=== PATIENT | female | born 1985 | race Caucasian/White ===

== ENCOUNTER 2019-07-26 17:35 | Emergency (ER) | payer OTHER ==
[2019-07-26 17:43] VITALS: BP 143/74; PULSE 82; TEMP 97.8; BMI 16.9
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
[2019-07-26] MEDS ORDERED: KETOROLAC TROMETHAMINE 60 MG/2 ML VIAL IM ONE (18:11)
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
[2019-07-26] MEDS ORDERED: KETOROLAC TROMETHAMINE 60 MG/2 ML VIAL ONE (18:19)
== END 2019-07-26 18:25 | disposition home or self-care (01) ==
LOC: JERFT 17:35
PROC: 3E0233Z Introduction of Anti-inflammatory into Muscle, Percutaneous Approach (ICD-10-PCS; principal; 2019-07-26)
DX: S29.012A Strain of muscle and tendon of back wall of thorax, initial encounter (principal)
CPT/HCPCS: 99284-25

== ENCOUNTER 2024-10-12 10:29 | Emergency (ER) | payer OTHER ==
[2024-10-12 10:41] VITALS: BP 107/66; PULSE 78; RESP 18; TEMP 97.7; BMI 19.3
[2024-10-12] MEDS ORDERED: METOCLOPRAMIDE HCL INJECTION 10 MG/2 ML VIAL ONE (11:27)
[2024-10-12] MEDS ORDERED: ACETAMINOPHEN INJECTION 100 ML ONE (11:27)
[2024-10-12 11:57] LABS: ABSOLUTE IMMATURE GRANULOCYTES 0.01 x10^3/uL (0.0-0.031); BASOPHILS # 0.04 x10^3/uL (0.01-0.08); EOSINOPHIL % 2.5 % (0.7-5.8); EOSINOPHILS # 0.19 x10^3/uL (0.04-0.36); HEMATOCRIT 44.3 % (34.1-44.9); MCHC 31.6 g/dl (32.2-35.5); MEAN CELL VOLUME 96.1 fl (79.4-94.8); MEAN PLT VOLUME 10.7 fl (9.4-12.3); MONOCYTE # 0.38 x10^3/uL (0.24-0.86); PLATELET COUNT 266 x10^3/uL (182-369); RDW 15.7 % (12.1-16.8)
[2024-10-12] MEDS: SODIUM CHLORIDE 1,000 ML IV STA (12:03)
[2024-10-12 12:04] LABS: PH,URINE 7.5 (5.0-8.0); URINE APPEARANCE CLOUDY; URINE BILIRUBIN NEGATIVE (NEGATIVE); URINE COLOR YELLOW; URINE GLUCOSE (UA) NEGATIVE (NEGATIVE); URINE KETONE NEGATIVE (NEGATIVE); URINE LEUK ESTERASE NEGATIVE (NEGATIVE); URINE NITRITE NEGATIVE (NEGATIVE); URINE PROTEIN NEGATIVE (NEGATIVE); URINE UROBILINOGEN 0.2 mg/dL (0.2-1.0)
[2024-10-12] MEDS: METOCLOPRAMIDE HCL INJECTION 10 MG/2 ML VIAL IVPB ONE (12:04)
[2024-10-12] MEDS: ACETAMINOPHEN 1000 MG/100 ML BAG IVPB ONE (12:04)
[2024-10-12 12:06] LABS: HCG,QUALITATIVE URINE Negative
[2024-10-12 12:19] LABS: CHLORIDE 102 mmol/L (98-107)
[2024-10-12 12:20] LABS: CALCIUM 8.6 mg/dL (8.5-10.1)
[2024-10-12 12:21] LABS: ALBUMIN 3.9 g/dl (3.4-5.0); BLOOD UREA NITROGEN 8.4 mg/dL (7-18); CO2 28 mmol/L (21-32); GLUCOSE,RANDOM 94 mg/dL (74-106); MAGNESIUM 2.4 mg/dL (1.8-2.4)
[2024-10-12 12:24] LABS: CREATININE 0.7 mg/dL (0.55-1.3)
[2024-10-12 12:25] LABS: TOT PROT 9.1 g/dl (6.4-8.2)
[2024-10-12 12:27] LABS: ALK PHOS 51 U/L (45-117)
[2024-10-12 13:57] LABS: ANION GAP -10 mmol/L (4-13); POTASSIUM > 10.0 mmol/L (3.5-5.1); SODIUM 120 mmol/L (136-145)
== END 2024-10-12 14:38 | disposition home or self-care (01) ==
LOC: JER 10:29
PROC: 3E033NZ Introduction of Analgesics, Hypnotics, Sedatives into Peripheral Vein, Percutaneous Approach (ICD-10-PCS; principal; 2024-10-12)
PROC: 3E033GC Introduction of Other Therapeutic Substance into Peripheral Vein, Percutaneous Approach (ICD-10-PCS; 2024-10-12)
PROC: 3E0337Z Introduction of Electrolytic and Water Balance Substance into Peripheral Vein, Percutaneous Approach (ICD-10-PCS; 2024-10-12)
DX: S40.022A Contusion of left upper arm, initial encounter (principal); R51.9 Headache, unspecified; R11.0 Nausea; R94.31 Abnormal electrocardiogram [ECG] [EKG]; W22.8XXA Striking against or struck by other objects, initial encounter
CPT/HCPCS: 0241U-QW; 36415; 70450-TC; 73060-TC-LT-FY; 80053; 81003; 83735; 84484; 84703; 85025; 87086; 93005; 93010; 99285-25; J0131